=== PATIENT | male | born 1960 | race Caucasian/White ===

== ENCOUNTER 2017-02-17 15:28 | Emergency (ER) | payer OTHER ==
[2017-02-17] MEDS ORDERED: ALLERGY PILL (15:42)
[2017-02-17] MEDS ORDERED: LISINOPRIL PO (15:42)
== END 2017-02-17 17:26 | disposition home or self-care (01) ==
LOC: SED 15:28
DX: S81.831A Puncture wound without foreign body, right lower leg, initial encounter (principal); I10 Essential (primary) hypertension; F17.210 Nicotine dependence, cigarettes, uncomplicated; Z23 Encounter for immunization; W26.8XXA Contact with other sharp object(s), not elsewhere classified, initial encounter; Y92.69 Other specified industrial and construction area as the place of occurrence of the external cause; Y99.0 Civilian activity done for income or pay
CPT/HCPCS: 90471; 90715; 99283